=== PATIENT | female | born 1930 | race Caucasian/White ===

== ENCOUNTER 2017-11-19 15:26 | Emergency (ER) | payer MEDICAID ==
[~2017-11-19] VITALS: Ht 160 cm; Wt 81.6 kg
[2017-11-19 15:34] VITALS: BP 167/71
[2017-11-19] MEDS ORDERED: KETOROLAC TROMETH 60MG/2ML VIAL IM ONE (17:15)
[2017-11-19] MEDS ORDERED: HYDROcodone-ACET 5/325MG TAB PO ONE (17:15)
== END 2017-11-19 17:29 | disposition home or self-care (01) ==
LOC: ER 15:33
DX: S86.911A Strain of unspecified muscle(s) and tendon(s) at lower leg level, right leg, initial encounter (principal); I10 Essential (primary) hypertension; Z96.642 Presence of left artificial hip joint; X58.XXXA Exposure to other specified factors, initial encounter; Y93.89 Activity, other specified; Y92.89 Other specified places as the place of occurrence of the external cause; Y99.8 Other external cause status
CPT/HCPCS: 29505; 73562; 96372; 99284; J1885

== ENCOUNTER 2018-06-29 09:24 | Inpatient (IN) | payer MEDICAID ==
[~2018-06-29] VITALS: Ht 157.5 cm; Wt 83.0 kg
[2018-06-29 10:27] LABS: Basophils # (auto) 0 uL; Basophils % (auto) 0.8 % (0.0-2.0); Eosinophils # (auto) 0.1 uL; Eosinophils % (auto) 1.6 % (0.0-7.0); Hematocrit 36.1 % (36.0-46.0); Hemoglobin 12.1 g/dL (12.2-16.2); Lymphocytes # (auto) 0.7 uL; Lymphocytes % (auto) 16.1 % (10.0-50.0); Mean Corpuscular Hemoglobin 31.6 pg (28.0-32.0); Mean Corpuscular Hgb Conc. 33.5 g/dL (32.0-36.0); Mean Corpuscular Volume 94.4 fL (80.0-100.0); Monocytes # (auto) 0.5 uL; Neutrophils # (auto) 3.1 uL; Neutrophils % (auto) 70.5 % (37.0-80.0); Platelet Count (auto) 179 10^3/uL (140-450); Red Blood Cells 3.83 10^6/uL (4.0-5.20); Red Cell Distribution Width 13.3 % (11.8-14.3); White Blood Cell 4.5 10^3/uL (4.4-10.8)
[2018-06-29 10:51] LABS: Alanine Aminotransferase 27 U/L (13-56); Albumin 3.1 g/dL (3.4-5.0); Alkaline Phosphatase 107 U/L (45-117); Anion Gap 5 (5-15); Aspartate Aminotransferase 18 U/L (15-37); BUN/Creatinine Ratio 21.3; Bilirubin, Total 0.5 mg/dL (0.2-1.0); Blood Urea Nitrogen 17 mg/dL (7-18); Calcium 8.1 mg/dL (8.5-10.1); Carbon Dioxide 26 mmol/L (21-32); Chloride 112 mmol/L (98-107); GFR African American 87 mL/min; GFR Non-African American 72 mL/min; Glucose 107 mg/dL (74-106); Potassium 3.8 mmol/L (3.5-5.1); Sodium 143 mmol/L (136-145); Total Protein 7.3 g/dL (6.4-8.2)
[2018-06-29] MEDS ORDERED: SODIUM CHLORIDE 0.9% 1,000 ML IV ONE (11:19)
[2018-06-29] MEDS ORDERED: LORazepam 2MG/ML-1ML VIAL IV ONE (11:30)
[2018-06-29] MEDS ORDERED: IOHEXOL 350 MG/ML 100ML IJ ONE (11:34)
[2018-06-29 12:32] LABS: INR 0.94 (0.9-1.15); Prothrombin Time 10.1 sec (9.27-12.13)
[2018-06-29] MEDS ORDERED: cloNIDine HCL 0.1 MG TAB PO PRN (15:00)
[2018-06-29] MEDS ORDERED: LOSARTAN POTASSIUM 50 MG TAB PO ONE (15:00)
[2018-06-29] MEDS ORDERED: METOPROLOL TARTRATE 50 MG TAB PO ONE (15:00)
[2018-06-29] MEDS ORDERED: MORPHINE SULFATE 4 MG/ML SYR/VIAL IV PRN (15:00)
[2018-06-29] MEDS ORDERED: NITROGLYCERIN 0.4 MG SL TAB SL PRN (15:00)
[2018-06-29] MEDS ORDERED: LORazepam 0.5 MG TAB PO PRN (15:00)
[2018-06-29] MEDS ORDERED: ADENOSINE 6 MG/2 ML INJ IV ONE ×2 (15:48→16:00)
[2018-06-29] MEDS ORDERED: DILTIAZEM HCL 25 MG/5 ML VIAL IV ONE (16:00)
[2018-06-29] MEDS: DILTIAZEM 125mg/125ml BAG KIT 100 ML IV SCH (16:33)
[2018-06-29 19:38] LABS: Urine Bacteria NONE SEEN /hpf (None Seen); Urine Blood Negative /uL (Negative); Urine Mucus FEW (None Seen); Urine WBC 16 /hpf (0 - 5)
[2018-06-29 20:00] VITALS: BP 132/83
[2018-06-29] MEDS: METOPROLOL TARTRATE 50 MG TAB PO SCH (21:25)
[2018-06-30] VITALS (11 sets, daily range): BP systolic 107–149; BP diastolic 46–93
[2018-06-30 05:44] LABS: Basophils # (auto) 0.1 uL; Eosinophils # (auto) 0.1 uL; Eosinophils % (auto) 2.2 % (0.0-7.0); Hematocrit 34.8 % (36.0-46.0); Hemoglobin 11.8 g/dL (12.2-16.2); Lymphocytes # (auto) 0.8 uL; Lymphocytes % (auto) 14.1 % (10.0-50.0); Mean Corpuscular Hemoglobin 31.6 pg (28.0-32.0); Mean Corpuscular Hgb Conc. 33.8 g/dL (32.0-36.0); Mean Corpuscular Volume 93.3 fL (80.0-100.0); Monocytes # (auto) 0.7 uL; Monocytes % (auto) 11.4 % (0.0-12.0); Neutrophils # (auto) 4.2 uL; Neutrophils % (auto) 71.3 % (37.0-80.0); Nucleated Red Blood Cells % 0.1 %; Platelet Count (auto) 171 10^3/uL (140-450); Red Blood Cells 3.73 10^6/uL (4.0-5.20); Red Cell Distribution Width 13.2 % (11.8-14.3)
[2018-06-30 06:09] LABS: BUN/Creatinine Ratio 19.7; Calcium 7.7 mg/dL (8.5-10.1); Potassium 3.5 mmol/L (3.5-5.1)
[2018-06-30] MEDS ORDERED: cefTRIAXone 1GM/10ml IVPUSH 10 ML IV ONE (10:45)
[2018-06-30] MEDS: LOSARTAN POTASSIUM 50 MG TAB PO SCH (12:21)
[2018-06-30] MEDS: METOPROLOL TARTRATE 50 MG TAB PO SCH ×2 (12:22→21:56)
[2018-06-30] MEDS ORDERED: AMIODARONE HCL 150 MG in D5W 5% 100 ML IV ONE (13:30)
[2018-06-30] MEDS ORDERED: AMIODARONE HCL 900 MG in DEXTROSE 500 ML IV SCH ×2 (13:45→19:45)
[2018-06-30] MEDS: DILTIAZEM 125mg/125ml BAG KIT 100 ML IV SCH (14:51)
[2018-06-30] MEDS ORDERED: ONDANSETRON HCL 4 MG/2 ML VIAL IV PRN (18:30)
[2018-07-01] VITALS: BP 106/56
[2018-07-01 04:00] VITALS: BP 149/98
[2018-07-01 08:00] VITALS: BP 137/99
[2018-07-01] MEDS ORDERED: FLUMAZENIL 0.1 MG/ML INJ 10ML MDV IV ONE (08:00)
[2018-07-01] MEDS ORDERED: NALOXONE HCL 0.4 MG/ML VIAL IV ONE (08:00)
[2018-07-01] MEDS ORDERED: MIDAZOLAM HCL 1MG/1ML-2 ML VIAL IV ONE (08:00)
[2018-07-01] MEDS ORDERED: LIDOCAINE VISCOUS 2% 15ML UD MT ONE (08:00)
[2018-07-01] MEDS ORDERED: fentaNYL CITRATE 100 MCG/2 ML VL IV ONE (08:00)
[2018-07-01] MEDS ORDERED: HEPARIN SODIUM (PORCINE) 5000 UNITS/ML 1ML VIAL ONE ×2 (08:48→09:14)
[2018-07-01] MEDS ORDERED: LIDOCAINE 2% (LOCAL ANESTH.) PF 5ml SDV ONE (08:54)
[2018-07-01] MEDS ORDERED: IOHEXOL 350 MG/ML 100ML IJ ONE (08:54)
[2018-07-01] MEDS ORDERED: CLOPIDOGREL 300 MG TAB ONE (09:47)
[2018-07-01] MEDS ORDERED: ASPirin 325 MG TAB ONE (09:50)
[2018-07-01] MEDS: ASPirin 81 mg TAB PO SCH (10:00)
[2018-07-01] MEDS ORDERED: CLOPIDOGREL 300 MG TAB PO ONE (10:00)
[2018-07-01] MEDS ORDERED: AMIODARONE HCL 200 MG TAB PO SCH (10:00)
[2018-07-01] MEDS: cefTRIAXone 1GM/10ml IVPUSH 10 ML IV SCH (10:51)
[2018-07-01] MEDS: CARVEDILOL 3.125 MG TAB PO SCH ×3 (10:51→21:42)
[2018-07-01 12:00] VITALS: BP 114/74
[2018-07-01] MEDS ORDERED: HYDROcodone-ACET 5/325MG TAB PO PRN (14:00)
[2018-07-01] MEDS: LOSARTAN POTASSIUM 50 MG TAB PO SCH (14:04)
[2018-07-01 15:50] VITALS: BP 144/63
[2018-07-01 19:54] VITALS: BP 149/87
[2018-07-01] MEDS ORDERED: ATORVASTATIN 20 MG TAB PO SCH (22:00)
[2018-07-02] VITALS: BP 100/64
[2018-07-02 04:00] VITALS: BP 125/57
[2018-07-02 06:14] LABS: Basophils # (auto) 0 uL; Basophils % (auto) 0.4 % (0.0-2.0); Eosinophils # (auto) 0 uL; Eosinophils % (auto) 0.5 % (0.0-7.0); Hematocrit 30.6 % (36.0-46.0); Hemoglobin 10.5 g/dL (12.2-16.2); Lymphocytes % (auto) 12.8 % (10.0-50.0); Mean Corpuscular Hemoglobin 32.1 pg (28.0-32.0); Mean Corpuscular Hgb Conc. 34.4 g/dL (32.0-36.0); Mean Corpuscular Volume 93.2 fL (80.0-100.0); Monocytes # (auto) 0.9 uL; Monocytes % (auto) 11.4 % (0.0-12.0); Neutrophils # (auto) 5.9 uL; Neutrophils % (auto) 74.9 % (37.0-80.0); Platelet Count (auto) 168 10^3/uL (140-450); Red Blood Cells 3.28 10^6/uL (4.0-5.20); White Blood Cell 7.9 10^3/uL (4.4-10.8)
[2018-07-02 06:27] LABS: Potassium 3.5 mmol/L (3.5-5.1)
[2018-07-02 06:36] LABS: Albumin 2.7 g/dL (3.4-5.0); BUN/Creatinine Ratio 25.3; Calcium 7.5 mg/dL (8.5-10.1)
[2018-07-02 06:38] LABS: Bilirubin, Total 0.8 mg/dL (0.2-1.0); Total Protein 6.6 g/dL (6.4-8.2)
[2018-07-02 08:00] VITALS: BP 126/62
[2018-07-02] MEDS: LOSARTAN POTASSIUM 50 MG TAB PO SCH (09:58)
[2018-07-02] MEDS: CARVEDILOL 3.125 MG TAB PO SCH (10:00)
[2018-07-02] MEDS ORDERED: CLOPIDOGREL BISULFATE 75 MG TAB PO SCH (10:00)
[2018-07-02] MEDS: ASPirin 81 mg TAB PO SCH (10:07)
[2018-07-02] MEDS: cefTRIAXone 1GM/10ml IVPUSH 10 ML IV SCH (10:07)
[2018-07-02 11:50] VITALS: BP 110/51
[2018-07-02 13:01] VITALS: BP 110/51
== END 2018-07-02 17:26 | disposition home or self-care (01) | DRG 175 ==
LOC: EDBD 09:24 → ER 09:29 → TELE 09:30 → DOU IN ICU 18:37
PROVIDERS: ADMIT Internal Medicine; ATTEND Internal Medicine
PROC: 4A023N7 Measurement of Cardiac Sampling and Pressure, Left Heart, Percutaneous Approach (ICD-10-PCS; principal; 2018-07-01)
PROC: 027034Z Dilation of Coronary Artery, One Artery with Drug-eluting Intraluminal Device, Percutaneous Approach (ICD-10-PCS; 2018-07-01)
PROC: 5A2204Z Restoration of Cardiac Rhythm, Single (ICD-10-PCS; 2018-07-01)
PROC: B2111ZZ Fluoroscopy of Multiple Coronary Arteries using Low Osmolar Contrast (ICD-10-PCS; 2018-07-01)
PROC: B2151ZZ Fluoroscopy of Left Heart using Low Osmolar Contrast (ICD-10-PCS; 2018-07-01)
DX: I25.10 Atherosclerotic heart disease of native coronary artery without angina pectoris (principal); I11.9 Hypertensive heart disease without heart failure; I48.91 Unspecified atrial fibrillation; I48.92 Unspecified atrial flutter; N39.0 Urinary tract infection, site not specified; E66.9 Obesity, unspecified; R04.0 Epistaxis; Z79.02 Long term (current) use of antithrombotics/antiplatelets; Z79.899 Other long term (current) drug therapy; Z68.33 Body mass index [BMI] 33.0-33.9, adult
CPT/HCPCS: 36415; 36600; 71275; 80048; 80053; 81001; 82805; 82962; 84443; 84484; 85025; 85610; 87081; 93306; 93312; 96361; 96365; 96375; 99152; A6257; C1874; J0153; J0696; J2001; J2250; J2405; J7060

== ENCOUNTER 2018-07-11 07:20 | Emergency (ER) | payer MEDICAID ==
[~2018-07-11] VITALS: Ht 157.5 cm; Wt 80.7 kg
[2018-07-11] MEDS ORDERED: LOSARTAN POTASSIUM 50 MG TAB PO ONE (09:45)
[2018-07-11 09:46] LABS: Basophils # (auto) 0.1 uL; Eosinophils # (auto) 0 uL; Eosinophils % (auto) 0.9 % (0.0-7.0); Hematocrit 33.6 % (36.0-46.0); Hemoglobin 11.5 g/dL (12.2-16.2); Lymphocytes # (auto) 0.7 uL; Lymphocytes % (auto) 12.1 % (10.0-50.0); Mean Corpuscular Hemoglobin 31.7 pg (28.0-32.0); Mean Corpuscular Hgb Conc. 34.3 g/dL (32.0-36.0); Mean Corpuscular Volume 92.4 fL (80.0-100.0); Monocytes # (auto) 0.5 uL; Monocytes % (auto) 8.9 % (0.0-12.0); Neutrophils # (auto) 4.4 uL; Neutrophils % (auto) 77.1 % (37.0-80.0); Platelet Count (auto) 304 10^3/uL (140-450); Red Blood Cells 3.64 10^6/uL (4.0-5.20); Red Cell Distribution Width 13.3 % (11.8-14.3); White Blood Cell 5.6 10^3/uL (4.4-10.8)
[2018-07-11 10:01] LABS: INR 0.94 (0.9-1.15); Partial Thromboplastin Time 24.4 sec (23.78-33.04); Prothrombin Time 10.1 sec (9.27-12.13)
[2018-07-11 10:43] VITALS: BP 171/79
== END 2018-07-11 11:08 | disposition home or self-care (01) ==
LOC: ER 07:20
DX: R04.0 Epistaxis (principal); I10 Essential (primary) hypertension; Z95.1 Presence of aortocoronary bypass graft
CPT/HCPCS: 36415; 83735; 85025; 85610; 85730; 93005

== ENCOUNTER 2020-06-27 10:58 | Inpatient (IN) | payer MEDICAID ==
[~2020-06-27] VITALS: Ht 157.5 cm; Wt 82.1 kg
[2020-06-27 12:13] LABS: Basophils # (auto) 0.1 10 ^3/uL (0-0.2); Eosinophils # (auto) 0.1 10 ^3/uL (0-0.8); Eosinophils % (auto) 1.1 % (0.0-7.0); Hematocrit 34.9 % (36.0-46.0); Hemoglobin 11.7 g/dL (12.2-16.2); Lymphocytes # (auto) 0.9 10 ^3/uL (0.4-5.4); Mean Corpuscular Hemoglobin 31.2 pg (28.0-32.0); Mean Corpuscular Hgb Conc. 33.7 g/dL (32.0-36.0); Mean Corpuscular Volume 92.7 fL (80.0-100.0); Monocytes # (auto) 0.5 10 ^3/uL (0-1.3); Monocytes % (auto) 9.9 % (0.0-12.0); Neutrophils # (auto) 3.9 10 ^3/uL (1.6-8.6); Platelet Count (auto) 196 10^3/uL (140-450); Red Blood Cells 3.76 10^6/uL (4.0-5.20); Red Cell Distribution Width 13.6 % (11.8-14.3); White Blood Cell 5.4 10^3/uL (4.4-10.8)
[2020-06-27 12:29] LABS: Albumin 3.3 g/dL (3.4-5.0); Anion Gap 6 (5-15); Blood Urea Nitrogen 22 mg/dL (7-18); Calcium 8.6 mg/dL (8.5-10.1); Carbon Dioxide 25 mmol/L (21-32); Chloride 109 mmol/L (98-107); Glucose 111 mg/dL (74-106); Magnesium 2.4 mg/dL (1.6-2.6); Potassium 3.5 mmol/L (3.5-5.1); Sodium 140 mmol/L (136-145)
[2020-06-27 12:34] LABS: Alanine Aminotransferase 56 U/L (13-56); Alkaline Phosphatase 105 U/L (45-117); Aspartate Aminotransferase 38 U/L (15-37); BUN/Creatinine Ratio 26.8; Bilirubin, Total 0.5 mg/dL (0.2-1.0); GFR African American 85 mL/min; GFR Non-African American 70 mL/min; Total Protein 7.1 g/dL (6.4-8.2)
[2020-06-27 12:48] LABS: Urine Bacteria NONE SEEN /hpf (None Seen); Urine Blood Negative /uL (Negative); Urine Specific Gravity 1.021 (1.001-1.035); Urine WBC 1 /hpf (0 - 5)
[2020-06-27 12:53] LABS: INR 0.94 (0.9-1.15); Partial Thromboplastin Time 24.6 sec (23.0-31.2)
[2020-06-27] MEDS ORDERED: NITROGLYCERIN 0.4 MG SL TAB SL PRN (14:15)
[2020-06-27] MEDS ORDERED: ONDANSETRON HCL 4 MG/2 ML VIAL IV PRN (14:15)
[2020-06-27] MEDS ORDERED: ACETAMINOPHEN 500 MG TAB PO PRN (14:15)
[2020-06-27] MEDS ORDERED: MORPHINE SULF INJ 2 MG/ML SYRINGE 1ML IV PRN ×2 (14:15)
[2020-06-27 14:42] LABS: Cholesterol 138 mg/dL (< 200)
[2020-06-27 14:45] LABS: HDL Cholesterol 59 mg/dL (40-59); LDL Cholesterol 70 mg/dL (< 100); Triglycerides 95 mg/dL (< 150)
[2020-06-27] MEDS ORDERED: HYDR25TA4 PO (15:14)
[2020-06-27] MEDS ORDERED: LOSA-39 PO (15:14)
[2020-06-27] MEDS ORDERED: ATOR20TA50 PO (15:14)
[2020-06-27] MEDS ORDERED: CLOP75TA41 PO (15:14)
[2020-06-27] MEDS ORDERED: DICL1GEL50 TD (15:28)
[2020-06-27] MEDS ORDERED: ACET1CAP14 PO (15:28)
[2020-06-27] MEDS ORDERED: DILT240C49 PO (15:28)
[2020-06-27] MEDS ORDERED: LATA0.0019 EACHEYE (15:28)
[2020-06-27] MEDS ORDERED: OXYB5TAB61 PO (15:28)
[2020-06-27] MEDS ORDERED: IBUP200C14 PO (15:28)
[2020-06-27] MEDS ORDERED: CHOL20002 PO (15:28)
[2020-06-27] MEDS ORDERED: WHIT1OIN OP (15:28)
[2020-06-27] MEDS: LABETALOL HCL 5 MG/ML 4ML SYRINGE IV PRN (17:54)
[2020-06-27 18:25] VITALS: BP 163/89
[2020-06-27] MEDS: ATORVASTATIN 20 MG TAB PO SCH (21:36)
[2020-06-27 22:00] VITALS: BP 139/78
[2020-06-28 05:00] VITALS: BP 132/73
[2020-06-28] MEDS: traMADol HCL 50 MG TAB PO PRN ×2 (05:58→16:22)
[2020-06-28] MEDS ORDERED: IBUPROFEN 400 MG TAB PO ONE (06:15)
[2020-06-28] MEDS ORDERED: diphenhdrAMINE HCL 25 MG CAP PO ONE (06:15)
--- NOTE | 2020-06-28 07:20 | NUR ---
Opening Shift Note Assumed care of patient, awake and alert, azerbaijani speaking, daughter translating. No S/S of distress/SOB, reports knee pain, denies headache. Instructed on POC and to call for assist PRN, will continue to monitor for changes Q1hr and PRN.
[2020-06-28] MEDS: CLOPIDOGREL BISULFATE 75 MG TAB PO SCH (08:47)
[2020-06-28] MEDS: FAMOTIDINE 20 MG TAB PO SCH (08:47)
[2020-06-28] MEDS: LISINOPRIL 20 MG TAB PO SCH (08:49)
[2020-06-28 08:57] VITALS: BP 148/75
[2020-06-28 13:00] VITALS: BP 154/77
[2020-06-28 16:34] VITALS: BP 134/68
[2020-06-28] MEDS ORDERED: LORazepam 2MG/ML-1ML VIAL IV PRN (20:00)
[2020-06-28] MEDS ORDERED: HYDROcodone-ACET 5/325MG TAB PO PRN (20:30)
[2020-06-28] MEDS: ATORVASTATIN 20 MG TAB PO SCH ×2 (21:27→21:37)
[2020-06-28] MEDS: LABETALOL HCL 5 MG/ML 4ML SYRINGE IV PRN (21:28)
[2020-06-28 22:00] VITALS: BP 155/84
[2020-06-28] MEDS: GABAPENTIN 100 MG CAP PO SCH (22:00)
[2020-06-29 05:00] VITALS: BP 155/82
[2020-06-29] MEDS: GABAPENTIN 100 MG CAP PO SCH ×3 (05:33→21:47)
[2020-06-29 08:00] VITALS: BP 153/88
--- NOTE | 2020-06-29 08:15 | NUR ---
Opening Shift Note Assumed care of patient, awake and alert, A/O X 4, sitting in a high-fowlers position upon entering the room. No S/S of distress/SOB or pain. Current IV was displaced and removed at this time. A 20g IV was placed in the right forearm using sterile technique after 2 attempts. No signs of trauma upon placement and the patient tolerated the procedure well. Instructed on POC and to call for assist PRN. Patient verbalized understanding. Bed is in lowest position and the call light is within reach. Will continue to monitor for changes Q1hr and PRN.
[2020-06-29 09:00] VITALS: BP 153/88
[2020-06-29] MEDS: CLOPIDOGREL BISULFATE 75 MG TAB PO SCH (10:17)
[2020-06-29] MEDS: FAMOTIDINE 20 MG TAB PO SCH (10:17)
[2020-06-29] MEDS: LISINOPRIL 20 MG TAB PO SCH (10:19)
--- NOTE | 2020-06-29 10:35 | NUR ---
Dr. Gibson at bedside Dr. Gibson at bedside discussing the plan of care with the patient and patient's daughter via telephone. Both verbalized understanding and all questions were addressed at this time. Will continue to monitor.
[2020-06-29 12:53] VITALS: BP 141/79
--- NOTE | 2020-06-29 14:51 | NUR ---
Nutrition Assessment Notes please see attached link for complete assessment Est Energy needs ABW 66 [id number] kcals (23-25 kcal/kgABW), Est Protein needs: 66-72 gms/day (1.0-1.1 gm/kgABW r/t elev RFT) Will continue to monitor and reassess prn. Addendum: 06/29/20 at [address] Amended: Links added.
--- NOTE | 2020-06-29 15:20 | NUR ---
Pt Off Unit for MRI Taken via wheelchair.
--- NOTE | 2020-06-29 15:50 | NUR ---
Patient returned from imaging Patient returned back to room by radiology. No signs of distress or complaints of pain.
[2020-06-29 17:00] VITALS: BP 130/91
--- NOTE | 2020-06-29 19:00 | NUR ---
Opening Shift Note Assumed care of patient, awake and alert. No S/S of distress/SOB or pain. Instructed on POC and to call for assist PRN, will continue to monitor for changes Q1hr and PRN.
[2020-06-29] MEDS: ATORVASTATIN 20 MG TAB PO SCH (21:47)
[2020-06-29 21:53] VITALS: BP 132/60
--- NOTE | 2020-06-30 04:01 | NUR ---
PATIENT ROUNDS PATIENT SLEEPING WELL THIS SHIFT. AT BEGINNING OF SHIFT THE PATIENT REPORTS THAT SHE IS FEELING BETTER. NO REPORTS OF PAIN OR SOB. WILL CONTINUE TO MONITOR Q HOUR AND PRN.
[2020-06-30] MEDS: GABAPENTIN 100 MG CAP PO SCH ×4 (05:52→21:37)
[2020-06-30 06:06] VITALS: BP 142/70
--- NOTE | 2020-06-30 07:13 | NUR ---
END SHIFT CARE ENDORSED TO DAY SHIFT Mukund BHAKTA
--- NOTE | 2020-06-30 07:30 | NUR ---
Opening Shift Note Assumed care of patient, awake, alert and sitting on the side of the bed eating breakfast upon entering the room. No S/S of distress/SOB or pain. Instructed on POC for the day and to call for assist PRN. Patient verbalized understanding. Bed is in lowest position and the call light is within reach. Will continue to monitor for changes Q1hr and PRN.
[2020-06-30 09:00] VITALS: BP 128/65
[2020-06-30] MEDS: CLOPIDOGREL BISULFATE 75 MG TAB PO SCH (10:05)
[2020-06-30] MEDS: FAMOTIDINE 20 MG TAB PO SCH (10:06)
[2020-06-30] MEDS: HCTZ 25 MG TAB PO SCH (10:06)
[2020-06-30] MEDS: LISINOPRIL 20 MG TAB PO SCH (10:07)
[2020-06-30 13:00] VITALS: BP 158/85
--- NOTE | 2020-06-30 13:06 | NUR ---
EEG- ELECTROENCEPHALOGRAM COMPLETED AT 12:50
--- NOTE | 2020-06-30 13:41 | NUR ---
Dr. Maddox at bedside Dr. Maddox at bedside discussing POC with patient and daughter. EEG pending, discharge possible for today. Patient verbalized understanding. Will continue to monitor and carry out all necessary orders.
--- NOTE | 2020-06-30 15:05 | NUR ---
New on set of Afib Patient presenting with a continuous episodes of AFIB. Dr. Maddox aware and patient is scheduled for a CECY with Dr. Mora on Thursday. Patient made aware as well as the daughter. Both verbalized understanding. Will continue to monitor the patient.
[2020-06-30 16:54] VITALS: BP 152/76
[2020-06-30 17:30] VITALS: BP 143/93
--- NOTE | 2020-06-30 20:00 | NUR ---
RECEIVED PATIENT FROM DAY SHIFT RN. PATIENT RESTING IN BED. NO S/S OF DISTRESS NOTED. DENIED PAIN FOR NOW. ASSISTED PATENT TO BATHROOM AND BACK TO BED. PATIENT TOLERATED WELL. POC INSTRUCTED AND ENCOURAGED PATIENT TO CALL FOR SENIOR BIOINFORMATICS SPECIALIST IF NEEDED. BED IN LOWEST POSITION WITH SIDE RAILS UP X 2. CALL [facility] WITHIN REACH. ALARM ON. CONTINUE TO MONITOR FOR CHANGES Q1H AND PRN.
[2020-06-30] MEDS: ATORVASTATIN 20 MG TAB PO SCH (21:37)
--- NOTE | 2020-06-30 21:38 | NUR ---
PATIENT WALKED TO BATHROOM AND BACK TO BED WITH CANE. PATIENT TOLERATED WELL. NO S/S OF DISTRESS NOTED. HOWEVER, PATIENT'S HR UP TO 160S WHEN PATIENT WAS IN BATHROOM. SOON PATIENT BACK TO BED, HR BACK TO 110S. PATIENT'S VITALS STABLE. WILL PASS IT TO DAY SHIFT RN. CONTINUE TO MONITOR.
[2020-06-30 22:00] VITALS: BP 141/68
--- NOTE | 2020-06-30 23:28 | NUR ---
PATIENT WALKED UP TO BATHROOM AND BACK TO BED WITH CANE. PATIENT TOLERATED WELL. NO S/S OF DISTRESS NOTED. CONTINUE TO MONITOR.
--- NOTE | 2020-07-01 02:06 | NUR ---
PATIENT SLEEPING. NO S/S OF DISTRESS NOTED. CONTINUE TO MONITOR.
--- NOTE | 2020-07-01 03:05 | NUR ---
PATIENT WALKED UP TO BATHROOM AND BACK TO BED WITH CANE. TOLERATED WELL. NO S/S OF DISTRESS NOTED. CONTINUE TO MONITOR.
[2020-07-01 05:00] VITALS: BP 108/55
[2020-07-01] MEDS: GABAPENTIN 100 MG CAP PO SCH ×3 (05:53→21:41)
[2020-07-01 07:59] LABS: Basophils # (auto) 0 10 ^3/uL (0-0.2); Basophils % (auto) 0.6 % (0.0-2.0); Eosinophils # (auto) 0.1 10 ^3/uL (0-0.8); Eosinophils % (auto) 0.7 % (0.0-7.0); Hematocrit 33.7 % (36.0-46.0); Hemoglobin 11.4 g/dL (12.2-16.2); Lymphocytes # (auto) 0.8 10 ^3/uL (0.4-5.4); Lymphocytes % (auto) 10.6 % (10.0-50.0); Mean Corpuscular Hemoglobin 31.7 pg (28.0-32.0); Mean Corpuscular Hgb Conc. 33.9 g/dL (32.0-36.0); Mean Corpuscular Volume 93.5 fL (80.0-100.0); Monocytes # (auto) 0.9 10 ^3/uL (0-1.3); Monocytes % (auto) 13.1 % (0.0-12.0); Neutrophils # (auto) 5.3 10 ^3/uL (1.6-8.6); Nucleated Red Blood Cells % 0.1 %; Platelet Count (auto) 177 10^3/uL (140-450); Red Blood Cells 3.61 10^6/uL (4.0-5.20); Red Cell Distribution Width 13.6 % (11.8-14.3); White Blood Cell 7.1 10^3/uL (4.4-10.8)
[2020-07-01 08:00] VITALS: BP 139/66
--- NOTE | 2020-07-01 08:01 | NUR ---
Opening Shift Note Assumed care of patient, awake, alert sitting on edge of the bed upon entering the room. No S/S of distress/SOB or pain. IV appears infiltrated and was D/C using sterile technique, patient tolerated withdrawal well. New placement will be attempted. Instructed on POC and to call for assist PRN. Patient verbalized understanding. Bed is in lowest position and the call light is within reach of the patient. Will continue to monitor for changes Q1hr and PRN.
[2020-07-01 08:13] LABS: Potassium 3.5 mmol/L (3.5-5.1)
[2020-07-01 08:17] LABS: BUN/Creatinine Ratio 34.3; Calcium 8.4 mg/dL (8.5-10.1)
--- NOTE | 2020-07-01 08:59 | NUR ---
IV Insertion 20G to R wrist inserted using clean/sterile technique. One attempt made. Pt tolerated well.
[2020-07-01 09:00] VITALS: BP 139/66
[2020-07-01] MEDS: FAMOTIDINE 20 MG TAB PO SCH (09:35)
[2020-07-01] MEDS: CLOPIDOGREL BISULFATE 75 MG TAB PO SCH (09:35)
[2020-07-01] MEDS: HCTZ 25 MG TAB PO SCH (09:39)
[2020-07-01] MEDS: LISINOPRIL 20 MG TAB PO SCH (10:00)
[2020-07-01 14:19] VITALS: BP 135/69
[2020-07-01 18:00] VITALS: BP 131/62
--- NOTE | 2020-07-01 19:40 | NUR ---
RECEIVED PATIENT FROM DAY SHIFT RN. PATIENT RESTING IN BED. NO S/S OF DISTRESS NOTED. DENIED PAIN FOR NOW. REINFORCED PATIENT NPO AFTER MIDNIGHT FOR PROCEDURE TOMORROW. PATIENT VERBALIZED UNDERSTANDING. POC INSTRUCTED AND ENCOURAGED PATIENT TO CALL FOR MENTAL HEALTH CASE MANAGER IF NEEDED. BED IN LOWEST LOCKED POSITION WITH SIDE RAILS UP X 2. CALL [facility] WITHIN REACH. ALARM ON. CONTINUE TO MONITOR FOR CHANGES Q1H AND PRN.
[2020-07-01] MEDS: ATORVASTATIN 20 MG TAB PO SCH (21:41)
--- NOTE | 2020-07-01 21:55 | NUR ---
PATIENT WALKED UP TO BATHROOM AND BACK TO BED WITH CANE. PATIENT TOLERATED WELL. NO S/S OF DISTRESS NOTED. CONTINUE TO MONITOR.
[2020-07-01 22:00] VITALS: BP 140/62
--- NOTE | 2020-07-02 00:15 | NUR ---
NPO FROM NOW ON FOR PROCEDURE LATER TODAY, WATER AND FOOD REMOVED FROM BEDSIDE. CONTINUE TO MONITOR.
--- NOTE | 2020-07-02 03:53 | NUR ---
PATIENT SLEEPING. NO S/S OF DISTRESS NOTED. CONTINUE TO MONITOR.
[2020-07-02 05:00] VITALS: BP 114/57
[2020-07-02] MEDS: GABAPENTIN 100 MG CAP PO SCH ×3 (05:33→21:31)
[2020-07-02 07:07] LABS: Basophils # (auto) 0.1 10 ^3/uL (0-0.2); Basophils % (auto) 0.8 % (0.0-2.0); Eosinophils # (auto) 0.1 10 ^3/uL (0-0.8); Eosinophils % (auto) 2.2 % (0.0-7.0); Hemoglobin 11.7 g/dL (12.2-16.2); Lymphocytes # (auto) 1.1 10 ^3/uL (0.4-5.4); Lymphocytes % (auto) 16.8 % (10.0-50.0); Mean Corpuscular Hemoglobin 31.5 pg (28.0-32.0); Mean Corpuscular Hgb Conc. 33.6 g/dL (32.0-36.0); Mean Corpuscular Volume 93.9 fL (80.0-100.0); Monocytes # (auto) 1.1 10 ^3/uL (0-1.3); Monocytes % (auto) 16.8 % (0.0-12.0); Neutrophils # (auto) 4.3 10 ^3/uL (1.6-8.6); Neutrophils % (auto) 63.4 % (37.0-80.0); Platelet Count (auto) 180 10^3/uL (140-450); Red Blood Cells 3.73 10^6/uL (4.0-5.20); Red Cell Distribution Width 13.9 % (11.8-14.3); White Blood Cell 6.8 10^3/uL (4.4-10.8)
[2020-07-02 07:23] LABS: Calcium 8.4 mg/dL (8.5-10.1); Potassium 3.6 mmol/L (3.5-5.1)
[2020-07-02 07:27] LABS: BUN/Creatinine Ratio 32.9
[2020-07-02 09:00] VITALS: BP 119/93
--- NOTE | 2020-07-02 09:11 | NUR ---
ATTEMPTED TO OBTAIN INFORMED CONSENT INTERPRETATION PHONE BROUGHT TO BEDSIDE. ALUMINUM BOATS ASSEMBLER #[id number] ON THE LINE SPEAKING ECUADOREAN TO PATIENT ACCORDING TO PATIENT NO DOCTOR HAS BEEN TO THE BEDSIDE TO EXPLAIN PROCEDURE. UNABLE TO OBTAIN INFORMED CONSENT. RN WILL ATTEMPT TO HAVE MD EXPLAIN PROCEDURE THROUGH INTERPRETATION SERVICES AND HAVE PATIENT SIGN CONSENTS. PT VERBALIZED UNDERSTANDING AND WILL WAIT FOR MD TO EXPLAIN PROCEDURE.
[2020-07-02] MEDS: CLOPIDOGREL BISULFATE 75 MG TAB PO SCH (09:29)
[2020-07-02] MEDS: LISINOPRIL 20 MG TAB PO SCH (09:29)
[2020-07-02] MEDS: FAMOTIDINE 20 MG TAB PO SCH (09:30)
[2020-07-02] MEDS: HCTZ 25 MG TAB PO SCH (09:30)
--- NOTE | 2020-07-02 10:28 | NUR ---
ROUNDING MD John GARRIDO AT BEDSIDE. ALL QUESTIONS AND CONCERNS ADDRESSED AT THIS TIME
--- NOTE | 2020-07-02 11:27 | NUR ---
PATIENT BROUGHT DOWN TO DELIVERY OF [employer]PING [employer] FOR PROCEDURE NO S/S OF DISTRESS NOTED AT THIS TIME
--- NOTE | 2020-07-02 12:09 | NUR ---
Nutrition Followup Notes Wt: 82.0 kg Pt couldn't speak Urdu with no family by bedside. per records pt to have CECY today and NPO for same. pt was on cardiac diet with adequate PO of > 75% x 6 per RN doc Est Energy needs ABW 66 [id number] kcals (23-25 kcal/kgABW), Est Protein needs: 66-72 gms/day (1.0-1.1 gm/kgABW r/t elev RFT). Will continue to monitor and reassess prn. 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 Refer to wound assessment report for full details. PES: Altered nutrition related lab values r.t current chronic medical condition aeb elev BUN mild hypoalb Decreased nutrient needs r/t adiposity aeb pt`s high BMI of 33.5 kgm2 Comments: Will continue to monitor PO intake, skin status, pertinent labs and weight trends. Will f/u in 3-5 days. 1) resume diet as medically feasible. 2) refer to [facility] dietitian on DC. 3) continue current plan of care
[2020-07-02] MEDS ORDERED: MIDAZOLAM HCL 1MG/1ML-2 ML VIAL IV ONE (12:30)
--- NOTE | 2020-07-02 13:31 | NUR ---
Received pt. in [facility] asleep with snoring respirations post-CECY. Resp. even and deep, moves all extremities spontaneously, O2 per NC @ 5L/min, IV to RIGHT forearm intact with NS infusing @ TKO; site benign, VS stable, ECG in NSR with no ectopy. NAD noted.
--- NOTE | 2020-07-02 13:46 | NUR ---
Remains asleep with snoring resp. but awakens easily to voice and touch stimuli, denies discomfort, NAD noted.
--- NOTE | 2020-07-02 13:52 | NUR ---
Remains stable post-procedure, respirations unchanged, SBAR report given to [facility].
--- NOTE | 2020-07-02 14:03 | NUR ---
Transferred back to room via bed with assist by transporter [place]. Pt. awake but slightly drowsy and denies discomfort, IV to RT forearm converted to NS lock; site benign. NAD noted, pt. endorsed to [facility].
[2020-07-02] MEDS ORDERED: APIX5TAB PO (15:15)
--- NOTE | 2020-07-02 15:20 | NUR ---
assessment Patient is a 89 year old female who is alert and oriented and Romansh speaking. Patient called her daughter Leilani and I did my assessment through her. Prior to admission patient lived home with her daughter Leilani and family and functioned with assistance. Patient will return home on discharge and Leilani will transport her home. Patient has a cane for home use. Patient is up ambulating in the room. Per Leilani patients PCP is Dr Javed. Per Leilani patient feels safe returning home on discharge. Patient may benefit from home health sfety and a fww on discharge. I will continue to monitor and follow up as appropriate for any post discharge needs. Leilani verbalized understanding and agreed to discharge plan home. Addendum: 07/02/20 at 1529 by Rosaura KING Amended: Links added.
[2020-07-02 17:00] VITALS: BP 120/59
--- NOTE | 2020-07-02 19:45 | NUR ---
Opening Shift Note Assumed care of patient, awake and alert, oriented x 4, follows direction. On room air with even and unlabored respirations. No S/S of distress/SOB or pain. Patient ambulates with cane independently. Daughter on phone to translate, instructed on procedure tomorrow and NPO status after breakfast, patient verbalized understanding. Bed in low locked position with side rails up x 2 and call light within reach. Instructed on POC and to call for assist PRN, will continue to monitor for changes Q1hr and PRN.
[2020-07-02] MEDS: ATORVASTATIN 20 MG TAB PO SCH (21:31)
[2020-07-02 22:00] VITALS: BP 91/50
[2020-07-02] MEDS ORDERED: APIXABAN 5 MG TAB PO SCH (22:00)
[2020-07-03 05:07] VITALS: BP 125/49
[2020-07-03] MEDS: GABAPENTIN 100 MG CAP PO SCH ×2 (05:23→14:41)
--- NOTE | 2020-07-03 06:56 | NUR ---
Closing Note patient resting in bed even and unlabored respirations, no s/s of distress or SOB. Bed in low locked position with side rails up x 2 and call light within reach.
[2020-07-03 08:21] LABS: INR 0.96 (0.9-1.15); Partial Thromboplastin Time 23.3 sec (23.0-31.2)
[2020-07-03 09:00] VITALS: BP 115/70
[2020-07-03] MEDS: HCTZ 25 MG TAB PO SCH (10:11)
[2020-07-03] MEDS: FAMOTIDINE 20 MG TAB PO SCH (10:11)
[2020-07-03] MEDS: LISINOPRIL 20 MG TAB PO SCH (10:12)
[2020-07-03] MEDS ORDERED: IOHEXOL 350 MG/ML 100ML IJ ONE (12:42)
[2020-07-03] MEDS ORDERED: LIDOCAINE 2%HCL (LOCAL ANESTH.) INJ 20ML MDV ONE (12:42)
[2020-07-03] MEDS ORDERED: EPINEPHrine HCL 1 MG/10 ML SYRG ONE (12:52)
[2020-07-03] MEDS ORDERED: PHENYLEPHRINE HCL 10 MG/ML VL ONE (12:52)
[2020-07-03] MEDS ORDERED: GLYCOPYRROLATE 0.2 MG/ML 1ML VIAL ONE (12:52)
[2020-07-03] MEDS ORDERED: ANGIOMAX 250 MG VIAL IV ONE (12:52)
[2020-07-03] MEDS ORDERED: SODIUM CHL 0.9% 0 ML ONE (12:53)
[2020-07-03] MEDS ORDERED: DOPamine 1600MCG/ML D5W 0 ML IV ONE (12:53)
[2020-07-03] MEDS ORDERED: ATROPINE SULF 1 MG/10ml SYR ONE (12:54)
[2020-07-03 13:00] VITALS: BP 127/89
[2020-07-03 15:00] VITALS: BP 147/62
[2020-07-03 16:49] VITALS: BP 145/74
--- NOTE | 2020-07-03 16:54 | NUR ---
DISCHARGE INSTRUCTIONS PATIENT REQUESTED DISCHARGE INSTRUCTIONS TO BE GIVEN TO PATIENT'S DAUGHTER OVER THE PHONE. SPOKE WITH DAUGHTER DOUGLAS WHALEN VIA TELEPHONE. ALL QUESTIONS AND CONCERNS ADDRESSED, FAMILY VERBALIZED INSTRUCTIONS, NO FURTHER QUESTIONS. PER FAMILY THEY PICKED UP PRESCRIPTIONS ALREADY. PATIENT ALSO GIVEN DISCHARGE INSTRUCTIONS.
--- NOTE | 2020-07-03 18:27 | NUR ---
DISCHARGE PATIENT LEFT UNIT IN NO APPARENT DISTRESS. DRESSING IS CLEAN DRY AND INTACT. PATIENT INSTRUCTED TO ASSESS SITE, PATIENT VERBALIZED UNDERSTANDING. PATIENT LEFT UNIT WITH ALL DISCHARGE PAPERWORK, BELONGINGS, AND MEDICATIONS. ALL LINES/DRAINS REMOVED. TELEMETRY BOX REMOVED. PATIENT ACCOMPANIED BY FAMILY.
== END 2020-07-03 18:27 | disposition home or self-care (01) | DRG 54 ==
LOC: ER 10:58 → TELE 10:59 → TELE-WESTW 17:43
PROVIDERS: ADMIT Nurse Practitioner Acute Care; ATTEND Internal Medicine Nephrology
PROC: B24BZZ4 Ultrasonography of Heart with Aorta, Transesophageal (ICD-10-PCS; 2020-07-02)
PROC: B3151ZZ Fluoroscopy of Bilateral Common Carotid Arteries using Low Osmolar Contrast (ICD-10-PCS; principal; 2020-07-03)
PROC: B3181ZZ Fluoroscopy of Bilateral Internal Carotid Arteries using Low Osmolar Contrast (ICD-10-PCS; 2020-07-03)
PROC: B31C1ZZ Fluoroscopy of Bilateral External Carotid Arteries using Low Osmolar Contrast (ICD-10-PCS; 2020-07-03)
DX: R51.9 Headache, unspecified (principal); G45.9 Transient cerebral ischemic attack, unspecified; D68.59 Other primary thrombophilia; I48.19 Other persistent atrial fibrillation; I48.92 Unspecified atrial flutter; I10 Essential (primary) hypertension; I25.10 Atherosclerotic heart disease of native coronary artery without angina pectoris; E78.5 Hyperlipidemia, unspecified; Z79.01 Long term (current) use of anticoagulants; E66.9 Obesity, unspecified; Z68.33 Body mass index [BMI] 33.0-33.9, adult; G51.0 Bell's palsy; D64.9 Anemia, unspecified; I70.0 Atherosclerosis of aorta
CPT/HCPCS: 36415; 70450; 70551; 71045; 80048; 80053; 80061; 81001; 83735; 84484; 85025; 85610; 85652; 85730; 86141; 86850; 86900; 86901; 93005; 93306; 93312; 93886; 95819; 96374; 99152; G0378; J2250; J3490

== ENCOUNTER 2021-05-25 09:24 | Emergency (ER) | payer MEDICAID ==
[~2021-05-25] VITALS: Ht 157.5 cm; Wt 80.7 kg
[2021-05-25 09:24] VITALS: BP 154/85
[~2021-05-25 09:24] MED LIST: ACET1CAP14 PO; APIX5TAB PO; ATOR20TA50 PO; CHOL20002 PO; DICL1GEL50 TD; DILT240C49 PO; HYDR25TA4 PO; LATA0.0019 EACHEYE; LOSA-39 PO; OXYB5TAB61 PO
[2021-05-25 10:35] LABS: Basophils # (auto) 0 10 ^3/uL (0-0.2); Basophils % (auto) 0.9 % (0.0-2.0); Eosinophils # (auto) 0 10 ^3/uL (0-0.8); Hematocrit 33.2 % (36.0-46.0); Hemoglobin 11.5 g/dL (12.2-16.2); Lymphocytes # (auto) 0.7 10 ^3/uL (0.4-5.4); Lymphocytes % (auto) 15.8 % (10.0-50.0); Mean Corpuscular Hemoglobin 33.6 pg (28.0-32.0); Mean Corpuscular Hgb Conc. 34.5 g/dL (32.0-36.0); Mean Corpuscular Volume 97.3 fL (80.0-100.0); Monocytes # (auto) 0.4 10 ^3/uL (0-1.3); Monocytes % (auto) 8.2 % (0.0-12.0); Neutrophils # (auto) 3.2 10 ^3/uL (1.6-8.6); Neutrophils % (auto) 74.1 % (37.0-80.0); Nucleated Red Blood Cells % 0.1 %; Red Blood Cells 3.42 10^6/uL (4.0-5.20); Red Cell Distribution Width 14.5 % (11.8-14.3); White Blood Cell 4.3 10^3/uL (4.4-10.8)
[2021-05-25 10:42] LABS: Urine Bacteria FEW /hpf (None Seen); Urine Blood Negative /uL (Negative); Urine Mucus FEW (None Seen); Urine Specific Gravity 1.027 (1.001-1.035); Urine WBC 33 /hpf (0 - 5)
[2021-05-25 10:53] LABS: Anion Gap 6 (5-15); Blood Urea Nitrogen 23 mg/dL (7-18); Calcium 8.7 mg/dL (8.5-10.1); Carbon Dioxide 26 mmol/L (21-32); Chloride 111 mmol/L (98-107); Glucose 112 mg/dL (74-106); Sodium 143 mmol/L (136-145)
[2021-05-25 10:59] LABS: Alanine Aminotransferase 26 U/L (13-56); Alkaline Phosphatase 105 U/L (45-117); Aspartate Aminotransferase 17 U/L (15-37); BUN/Creatinine Ratio 25.8; GFR African American 77 mL/min; GFR Non-African American 63 mL/min
[2021-05-25] MEDS ORDERED: FUROSEMIDE 20 MG TAB PO ONE (12:00)
== END 2021-05-25 12:13 | disposition home or self-care (01) ==
LOC: ER 09:24
DX: N39.0 Urinary tract infection, site not specified (principal); D64.9 Anemia, unspecified; I11.0 Hypertensive heart disease with heart failure; I50.9 Heart failure, unspecified; I25.10 Atherosclerotic heart disease of native coronary artery without angina pectoris
CPT/HCPCS: 36415; 71045; 80053; 81001; 83880; 84484; 85025; 93005

== ENCOUNTER 2021-05-27 07:45 | Inpatient (IN) | payer MEDICAID ==
[~2021-05-27] VITALS: Ht 157.5 cm; Wt 82.8 kg
[2021-05-27 10:18] LABS: Basophils # (auto) 0.1 10 ^3/uL (0-0.2); Basophils % (auto) 0.9 % (0.0-2.0); Eosinophils # (auto) 0 10 ^3/uL (0-0.8); Eosinophils % (auto) 0.7 % (0.0-7.0); Hematocrit 33.1 % (36.0-46.0); Hemoglobin 11.2 g/dL (12.2-16.2); Lymphocytes # (auto) 0.7 10 ^3/uL (0.4-5.4); Mean Corpuscular Hemoglobin 33.2 pg (28.0-32.0); Mean Corpuscular Hgb Conc. 33.8 g/dL (32.0-36.0); Monocytes # (auto) 0.5 10 ^3/uL (0-1.3); Monocytes % (auto) 7.9 % (0.0-12.0); Neutrophils # (auto) 4.8 10 ^3/uL (1.6-8.6); Neutrophils % (auto) 79.5 % (37.0-80.0); Red Blood Cells 3.38 10^6/uL (4.0-5.20); Red Cell Distribution Width 14.6 % (11.8-14.3)
[2021-05-27 10:35] LABS: Chloride 113 mmol/L (98-107); Potassium 4.3 mmol/L (3.5-5.1); Sodium 144 mmol/L (136-145)
[2021-05-27 10:44] LABS: Alanine Aminotransferase 44 U/L (13-56); Albumin 3.2 g/dL (3.4-5.0); Alkaline Phosphatase 119 U/L (45-117); Anion Gap 4 (5-15); Aspartate Aminotransferase 33 U/L (15-37); BUN/Creatinine Ratio 26.3; Bilirubin, Total 0.7 mg/dL (0.2-1.0); Blood Urea Nitrogen 21 mg/dL (7-18); Calcium 8.6 mg/dL (8.5-10.1); Carbon Dioxide 27 mmol/L (21-32); GFR African American 87 mL/min; GFR Non-African American 72 mL/min; Glucose 109 mg/dL (74-106); Total Protein 7.2 g/dL (6.4-8.2)
[2021-05-27] MEDS ORDERED: FUROSEMIDE 20 MG/2 ML VIAL IV ONE (12:15)
[2021-05-27] MEDS ORDERED: ONDANSETRON HCL 4 MG/2 ML VIAL IV PRN (14:45)
[2021-05-27] MEDS ORDERED: hydrALAZINE HCL 20 MG/ML VL IV PRN (14:45)
[2021-05-27] MEDS ORDERED: HYDROcodone-ACET 5/325MG TAB PO PRN (14:45)
[2021-05-27] MEDS ORDERED: NITROGLYCERIN 0.4 MG SL TAB SL PRN (14:45)
[2021-05-27] MEDS ORDERED: MORPHINE SULFATE INJECTION 2 MG/ML SYRG IV PRN ×2 (14:45)
[2021-05-27] MEDS ORDERED: ACETAMINOPHEN 500 MG TAB PO PRN (14:45)
[2021-05-27] MEDS ORDERED: DIGOXIN (250MCG/ML) 2 ML AMPULE IV ONE (16:45)
[2021-05-27] MEDS ORDERED: AMIODARONE HCL 150 MG in D5W 5% 100 ML IV ONE (17:00)
[2021-05-27] MEDS ORDERED: AMIODARONE 450mg/250ml AE 250 ML IV SCH (17:10)
[2021-05-27] MEDS: LATANOPROST 0.005 % OPTH(EYE) SOL 2.5ML EACHEYE SCH (18:00)
[2021-05-27] MEDS ORDERED: AMIODARONE HCL (50 MG/ ML) 3 ML VIAL IV ONE (20:43)
[2021-05-27] MEDS: METOPROLOL TARTRATE 25 MG TAB PO SCH ×2 (22:00→23:10)
[2021-05-27] MEDS ORDERED: ATORVASTATIN 20 MG TAB PO SCH (22:00)
[2021-05-27] MEDS: ATORVASTATIN 20 MG TAB PO SCH (23:10)
[2021-05-27] MEDS: APIXABAN 2.5 MG TAB PO SCH (23:10)
[2021-05-27 23:35] LABS: Urine Amorphous Crystal FEW /hpf (None Seen); Urine Bacteria FEW /hpf (None Seen); Urine Blood Negative /uL (Negative); Urine Mucus FEW (None Seen); Urine Specific Gravity 1.027 (1.001-1.035); Urine WBC 2 /hpf (0 - 5)
[2021-05-27] MEDS: AMIODARONE 450mg/250ml AE 250 ML IV SCH (23:59)
[2021-05-28] VITALS (7 sets, daily range): BP systolic 123–154; BP diastolic 56–102
[2021-05-28] MEDS ORDERED: ASPI-543 PO (01:16)
[2021-05-28] MEDS ORDERED: FOLI1TAB6 PO (01:16)
[2021-05-28 05:23] LABS: Basophils # (auto) 0 10 ^3/uL (0-0.2); Basophils % (auto) 0.4 % (0.0-2.0); Eosinophils # (auto) 0 10 ^3/uL (0-0.8); Eosinophils % (auto) 0.4 % (0.0-7.0); Hematocrit 32.8 % (36.0-46.0); Hemoglobin 11.3 g/dL (12.2-16.2); Lymphocytes # (auto) 0.6 10 ^3/uL (0.4-5.4); Lymphocytes % (auto) 7.5 % (10.0-50.0); Mean Corpuscular Hemoglobin 33.5 pg (28.0-32.0); Mean Corpuscular Hgb Conc. 34.3 g/dL (32.0-36.0); Mean Corpuscular Volume 97.7 fL (80.0-100.0); Monocytes # (auto) 0.7 10 ^3/uL (0-1.3); Monocytes % (auto) 8.5 % (0.0-12.0); Neutrophils # (auto) 6.8 10 ^3/uL (1.6-8.6); Neutrophils % (auto) 83.2 % (37.0-80.0); Nucleated Red Blood Cells % 0.1 %; Red Blood Cells 3.36 10^6/uL (4.0-5.20); Red Cell Distribution Width 14.6 % (11.8-14.3); White Blood Cell 8.2 10^3/uL (4.4-10.8)
[2021-05-28 05:42] LABS: INR 1.07 (0.9-1.15); Partial Thromboplastin Time 26.7 sec (23.6-33.0)
[2021-05-28 05:55] LABS: Potassium 3.8 mmol/L (3.5-5.1)
[2021-05-28] MEDS ORDERED: FUROSEMIDE 20 MG/2 ML VIAL IV SCH (06:00)
[2021-05-28 06:02] LABS: BUN/Creatinine Ratio 29.6; Calcium 8.6 mg/dL (8.5-10.1)
[2021-05-28] MEDS ORDERED: IPRATROPIUM BROM 0.5 MG/2.5ML INH SOL NEB PRN (07:00)
[2021-05-28] MEDS ORDERED: ALBUTEROL SULF 2.5 MG/0.5ML(0.5%) NEB SOLN NEB PRN (07:00)
[2021-05-28] MEDS: METOPROLOL TARTRATE 25 MG TAB PO SCH ×2 (09:06→21:39)
[2021-05-28] MEDS: ASPirin-EC 81 mg tab PO SCH (09:07)
[2021-05-28] MEDS: APIXABAN 2.5 MG TAB PO SCH ×2 (09:07→21:39)
[2021-05-28] MEDS: LISINOPRIL 10 MG TAB PO SCH (09:07)
[2021-05-28] MEDS ORDERED: DIGOXIN (250MCG/ML) 2 ML AMPULE IV ONE (09:30)
[2021-05-28] MEDS ORDERED: cefTRIAXone 1GM/50ML D5W 50 ML IV ONE (11:45)
[2021-05-28] MEDS: AMIODARONE 450mg/250ml AE 250 ML IV SCH (14:49)
[2021-05-28] MEDS: FUROSEMIDE 40 MG/4 ML VIAL IV SCH (17:34)
[2021-05-28] MEDS: LATANOPROST 0.005 % OPTH(EYE) SOL 2.5ML EACHEYE SCH (17:34)
[2021-05-28] MEDS: ATORVASTATIN 20 MG TAB PO SCH (21:39)
[2021-05-29 05:00] VITALS: BP 125/71
[2021-05-29] MEDS: FUROSEMIDE 40 MG/4 ML VIAL IV SCH ×2 (05:19→17:31)
[2021-05-29 06:01] LABS: Basophils # (auto) 0 10 ^3/uL (0-0.2); Basophils % (auto) 0.5 % (0.0-2.0); Eosinophils # (auto) 0.1 10 ^3/uL (0-0.8); Eosinophils % (auto) 1.7 % (0.0-7.0); Hemoglobin 11.6 g/dL (12.2-16.2); Lymphocytes # (auto) 0.7 10 ^3/uL (0.4-5.4); Lymphocytes % (auto) 8.3 % (10.0-50.0); Mean Corpuscular Volume 97.1 fL (80.0-100.0); Monocytes % (auto) 11.8 % (0.0-12.0); Neutrophils # (auto) 6.4 10 ^3/uL (1.6-8.6); Neutrophils % (auto) 77.7 % (37.0-80.0); Nucleated Red Blood Cells % 0.1 %; Red Blood Cells 3.51 10^6/uL (4.0-5.20); Red Cell Distribution Width 14.6 % (11.8-14.3); White Blood Cell 8.2 10^3/uL (4.4-10.8)
[2021-05-29] MEDS: AMIODARONE 450mg/250ml AE 250 ML IV SCH ×2 (06:16→22:08)
[2021-05-29 06:30] LABS: Albumin 2.8 g/dL (3.4-5.0); Calcium 8.2 mg/dL (8.5-10.1); Potassium 3.7 mmol/L (3.5-5.1)
[2021-05-29 06:38] LABS: BUN/Creatinine Ratio 29.1; Bilirubin, Total 1.3 mg/dL (0.2-1.0)
[2021-05-29] MEDS: APIXABAN 2.5 MG TAB PO SCH ×2 (08:47→22:08)
[2021-05-29] MEDS: cefTRIAXone 1GM/50ML D5W 50 ML IV SCH (08:47)
[2021-05-29] MEDS: ASPirin-EC 81 mg tab PO SCH (08:47)
[2021-05-29] MEDS: METOPROLOL TARTRATE 25 MG TAB PO SCH ×2 (08:48→22:09)
[2021-05-29] MEDS: LISINOPRIL 10 MG TAB PO SCH (08:48)
[2021-05-29 09:41] VITALS: BP 127/70
[2021-05-29 12:54] VITALS: BP 125/80
[2021-05-29 16:42] VITALS: BP 113/62
[2021-05-29] MEDS: LATANOPROST 0.005 % OPTH(EYE) SOL 2.5ML EACHEYE SCH (17:31)
[2021-05-29 22:00] VITALS: BP 105/67
[2021-05-29] MEDS: ATORVASTATIN 20 MG TAB PO SCH (22:08)
[2021-05-30 05:00] VITALS: BP 124/65
[2021-05-30] MEDS: FUROSEMIDE 40 MG/4 ML VIAL IV SCH ×2 (05:23→17:49)
[2021-05-30 05:54] LABS: Basophils # (auto) 0 10 ^3/uL (0-0.2); Basophils % (auto) 0.4 % (0.0-2.0); Eosinophils # (auto) 0.2 10 ^3/uL (0-0.8); Eosinophils % (auto) 2.3 % (0.0-7.0); Hematocrit 34.5 % (36.0-46.0); Hemoglobin 12.1 g/dL (12.2-16.2); Lymphocytes % (auto) 11.9 % (10.0-50.0); Mean Corpuscular Hemoglobin 33.6 pg (28.0-32.0); Mean Corpuscular Hgb Conc. 35.2 g/dL (32.0-36.0); Mean Corpuscular Volume 95.6 fL (80.0-100.0); Monocytes # (auto) 1.2 10 ^3/uL (0-1.3); Monocytes % (auto) 13.8 % (0.0-12.0); Neutrophils # (auto) 6.2 10 ^3/uL (1.6-8.6); Neutrophils % (auto) 71.6 % (37.0-80.0); Nucleated Red Blood Cells % 0.3 %; Red Blood Cells 3.61 10^6/uL (4.0-5.20); Red Cell Distribution Width 14.7 % (11.8-14.3); White Blood Cell 8.6 10^3/uL (4.4-10.8)
[2021-05-30 06:22] LABS: Albumin 2.7 g/dL (3.4-5.0); Calcium 8.4 mg/dL (8.5-10.1); Potassium 3.1 mmol/L (3.5-5.1)
[2021-05-30 06:26] LABS: BUN/Creatinine Ratio 31.3; Bilirubin, Total 1.2 mg/dL (0.2-1.0); Total Protein 6.7 g/dL (6.4-8.2)
[2021-05-30] MEDS: AMIODARONE HCL 200 MG TAB PO SCH ×2 (08:52→21:45)
[2021-05-30] MEDS: LISINOPRIL 10 MG TAB PO SCH (08:52)
[2021-05-30] MEDS: ASPirin-EC 81 mg tab PO SCH (08:52)
[2021-05-30] MEDS: APIXABAN 2.5 MG TAB PO SCH ×2 (08:53→21:45)
[2021-05-30] MEDS: cefTRIAXone 1GM/50ML D5W 50 ML IV SCH (08:53)
[2021-05-30] MEDS: METOPROLOL TARTRATE 25 MG TAB PO SCH ×2 (08:53→21:40)
[2021-05-30 09:00] VITALS: BP 147/77
[2021-05-30] MEDS ORDERED: POTASSIUM EFFERVESENT TAB 25 MEQ PO ONE (12:00)
[2021-05-30 13:00] VITALS: BP 119/82
[2021-05-30 17:00] VITALS: BP 96/47
[2021-05-30] MEDS: Ensure HIGH Protein Chocolate 8oz Bottle PO SCH (17:49)
[2021-05-30] MEDS: LATANOPROST 0.005 % OPTH(EYE) SOL 2.5ML EACHEYE SCH (17:49)
[2021-05-30] MEDS: ATORVASTATIN 20 MG TAB PO SCH (21:45)
[2021-05-30 23:26] VITALS: BP 99/65
[2021-05-31 05:17] VITALS: BP 111/74
[2021-05-31] MEDS: FUROSEMIDE 40 MG/4 ML VIAL IV SCH ×2 (05:47→18:00)
[2021-05-31 06:32] LABS: Basophils # (auto) 0 10 ^3/uL (0-0.2); Basophils % (auto) 0.3 % (0.0-2.0); Eosinophils # (auto) 0.2 10 ^3/uL (0-0.8); Eosinophils % (auto) 2.5 % (0.0-7.0); Hematocrit 36.4 % (36.0-46.0); Hemoglobin 12.5 g/dL (12.2-16.2); Lymphocytes # (auto) 0.9 10 ^3/uL (0.4-5.4); Lymphocytes % (auto) 11.1 % (10.0-50.0); Mean Corpuscular Hemoglobin 33.1 pg (28.0-32.0); Mean Corpuscular Hgb Conc. 34.4 g/dL (32.0-36.0); Mean Corpuscular Volume 96.4 fL (80.0-100.0); Monocytes # (auto) 1.4 10 ^3/uL (0-1.3); Monocytes % (auto) 17.1 % (0.0-12.0); Neutrophils # (auto) 5.7 10 ^3/uL (1.6-8.6); Red Blood Cells 3.77 10^6/uL (4.0-5.20); Red Cell Distribution Width 14.3 % (11.8-14.3); White Blood Cell 8.2 10^3/uL (4.4-10.8)
[2021-05-31 06:42] LABS: BUN/Creatinine Ratio 35.6; Calcium 8.4 mg/dL (8.5-10.1); Potassium 3.1 mmol/L (3.5-5.1)
[2021-05-31 08:00] VITALS: BP 111/55
[2021-05-31] MEDS ORDERED: POTASSIUM EFFERVESENT TAB 25 MEQ GT ONE (08:15)
[2021-05-31] MEDS: Ensure HIGH Protein Chocolate 8oz Bottle PO SCH ×3 (08:49→18:35)
[2021-05-31] MEDS: cefTRIAXone 1GM/50ML D5W 50 ML IV SCH (08:49)
[2021-05-31] MEDS: AMIODARONE HCL 200 MG TAB PO SCH ×2 (08:49→21:38)
[2021-05-31] MEDS: APIXABAN 2.5 MG TAB PO SCH ×2 (08:50→21:39)
[2021-05-31] MEDS: METOPROLOL TARTRATE 25 MG TAB PO SCH ×2 (08:50→21:40)
[2021-05-31] MEDS: POTASSIUM CHL 20 Meq TABLET PO SCH (08:50)
[2021-05-31] MEDS: ASPirin-EC 81 mg tab PO SCH (08:50)
[2021-05-31] MEDS: LISINOPRIL 10 MG TAB PO SCH (08:51)
[2021-05-31 12:00] VITALS: BP 105/68
[2021-05-31 16:00] VITALS: BP 104/64
[2021-05-31] MEDS: LATANOPROST 0.005 % OPTH(EYE) SOL 2.5ML EACHEYE SCH (18:35)
[2021-05-31] MEDS: ATORVASTATIN 20 MG TAB PO SCH (21:39)
[2021-05-31 23:26] VITALS: BP 128/76
[2021-06-01 05:06] LABS: Basophils # (auto) 0 10 ^3/uL (0-0.2); Basophils % (auto) 0.6 % (0.0-2.0); Eosinophils # (auto) 0.4 10 ^3/uL (0-0.8); Eosinophils % (auto) 4.6 % (0.0-7.0); Hematocrit 37.4 % (36.0-46.0); Hemoglobin 12.6 g/dL (12.2-16.2); Lymphocytes % (auto) 12.7 % (10.0-50.0); Mean Corpuscular Hemoglobin 32.4 pg (28.0-32.0); Mean Corpuscular Hgb Conc. 33.6 g/dL (32.0-36.0); Mean Corpuscular Volume 96.3 fL (80.0-100.0); Monocytes # (auto) 1.2 10 ^3/uL (0-1.3); Monocytes % (auto) 14.5 % (0.0-12.0); Neutrophils # (auto) 5.5 10 ^3/uL (1.6-8.6); Neutrophils % (auto) 67.6 % (37.0-80.0); Red Blood Cells 3.88 10^6/uL (4.0-5.20); Red Cell Distribution Width 14.4 % (11.8-14.3); White Blood Cell 8.1 10^3/uL (4.4-10.8)
[2021-06-01 05:18] LABS: BUN/Creatinine Ratio 38.7; Calcium 8.4 mg/dL (8.5-10.1); Potassium 3.5 mmol/L (3.5-5.1)
[2021-06-01] MEDS: FUROSEMIDE 40 MG/4 ML VIAL IV SCH (06:00)
[2021-06-01] MEDS: Ensure HIGH Protein Chocolate 8oz Bottle PO SCH ×2 (08:20→12:05)
[2021-06-01 08:30] VITALS: BP 111/62
[2021-06-01] MEDS: cefTRIAXone 1GM/50ML D5W 50 ML IV SCH (09:00)
[2021-06-01] MEDS: ASPirin-EC 81 mg tab PO SCH (09:36)
[2021-06-01] MEDS: AMIODARONE HCL 200 MG TAB PO SCH (09:36)
[2021-06-01] MEDS: APIXABAN 2.5 MG TAB PO SCH (09:36)
[2021-06-01] MEDS: POTASSIUM CHL 20 Meq TABLET PO SCH (09:37)
[2021-06-01] MEDS: METOPROLOL TARTRATE 25 MG TAB PO SCH (09:38)
[2021-06-01] MEDS: LISINOPRIL 10 MG TAB PO SCH (09:41)
[2021-06-01 12:11] VITALS: BP 111/65
== END 2021-06-01 13:45 | disposition home or self-care (01) | DRG 194 ==
LOC: ER 07:45 → EDBD 07:45 → TELE 14:43 → TELE-WESTW 23:17
PROVIDERS: ADMIT Nurse Practitioner Acute Care; ATTEND Internal Medicine
DX: I13.0 Hypertensive heart and chronic kidney disease with heart failure and stage 1 through stage 4 chronic kidney disease, or unspecified chronic kidney disease (principal); J96.01 Acute respiratory failure with hypoxia; E44.0 Moderate protein-calorie malnutrition; D63.1 Anemia in chronic kidney disease; I48.19 Other persistent atrial fibrillation; E88.09 Other disorders of plasma-protein metabolism, not elsewhere classified; I50.23 Acute on chronic systolic (congestive) heart failure; E66.9 Obesity, unspecified; I25.10 Atherosclerotic heart disease of native coronary artery without angina pectoris; E78.5 Hyperlipidemia, unspecified; Z20.822 Contact with and (suspected) exposure to COVID-19; N39.0 Urinary tract infection, site not specified; N18.2 Chronic kidney disease, stage 2 (mild); Z96.649 Presence of unspecified artificial hip joint; R04.0 Epistaxis; E87.6 Hypokalemia; I25.5 Ischemic cardiomyopathy; Z68.29 Body mass index [BMI] 29.0-29.9, adult; Z87.440 Personal history of urinary (tract) infections; Z79.01 Long term (current) use of anticoagulants; Z79.899 Other long term (current) drug therapy; Z95.5 Presence of coronary angioplasty implant and graft; Z86.73 Personal history of transient ischemic attack (TIA), and cerebral infarction without residual deficits
CPT/HCPCS: 36415; 70450; 71045; 71275; 80048; 80053; 81001; 83735; 83880; 84443; 84484; 85025; 85379; 85610; 85730; 86141; 87086; 87426; 93005; 93306; 93886; 93970; 94640; G0378; J0696; J7060